=== PATIENT | female | born 1955 | race American Indian/Alaskan Native ===

== ENCOUNTER 2018-05-12 04:58 | Inpatient (IN) ==
[2018-05-08 17:14] LABS: Appearance,Urine HAZY; Bilirubin,Urine NEG (NEG); Color,Urine YELLOW; Glucose,Urine (UA) NEGATIVE (NEG); Leukocyte Esterase,Urine NEG /uL (NEG); Protein,Urine NEG (NEG); Specific Gravity,Urine 1.023 (1.000-1.035); Urine Blood NEG mg/dL (<0.03); Urobilinogen,Urine NEG (NEG)
[2018-05-08 19:21] LABS: Basophils # (Auto) 0 K/mcL (0.0-0.3); Basophils % (Auto) 0.4 % (0.0-2.0); Eosinophils # (Auto) 0.3 K/mcL (0.0-0.7); Eosinophils % (Auto) 2.6 % (0.0-7.0); Granulocytes % (Auto) 59.2 % (38.0-78.0); Lymphocytes % (Auto) 30.1 % (15.5-49.0); Mean Cell Volume 85.2 fL (80.0-100.0); Mean Corpuscular HGB Conc 32.1 g/dL (31.0-36.0); Monocytes # (Auto) 0.8 K/mcL (0.1-0.9); Monocytes % (Auto) 7.7 % (1.0-12.0); Platelet Count 371 K/mcL (140-440); RBC 5.31 M/mcL (4.00-5.20); Red Cell Distribution Width 13.6 % (11.5-14.5)
[2018-05-08 19:46] LABS: Blood Urea Nitrogen 16 mg/dl (8-23)
[2018-05-12] MEDS ORDERED: 0.9 % SODIUM CHLORIDE 9 ML, KETOROLAC 30 MG, ROPIVACAINE HCL/PF 49.5 ML, EPINEPHrine 0.... IJ SCH (06:00)
[2018-05-12] MEDS ORDERED: PREGABALIN 75 MG CAPSULE PO SCH (06:00)
[2018-05-12] MEDS ORDERED: ACETAMINOPHEN 500 MG TABLET PO SCH (06:00)
[2018-05-12] MEDS ORDERED: oxyCODONE 10 MG TAB.ER.12H PO SCH (06:00)
[2018-05-12] MEDS ORDERED: ceFAZolin 1 GM VIAL IV SCH (06:00)
[2018-05-12] MEDS ORDERED: LIDOCAINE HCL/PF 100 MG/5 ML SYRINGE IV ONE (09:15)
[2018-05-12] MEDS ORDERED: ePHEDrine 50 MG/ML AMPUL IV ONE (09:15)
[2018-05-12] MEDS ORDERED: MIDAZOLAM 5 MG/5 ML VIAL IV ONE (09:15)
[2018-05-12] MEDS ORDERED: PROPOFOL 200 MG/20 ML VIAL IV ONE (09:15)
[2018-05-12] MEDS ORDERED: TRANEXAMIC ACID 1,000 MG/10 ML VIAL IV ONE ×2 (09:15→11:12)
[2018-05-12] MEDS ORDERED: ONDANSETRON 4 MG/2 ML VIAL IV ONE (09:15)
[2018-05-12] MEDS ORDERED: ROPIVACAINE HCL/PF 20 ML VIAL IJ ONE (09:15)
[2018-05-12] MEDS ORDERED: DEXAMETHASONE 10 MG/ML VIAL IV ONE (09:15)
[2018-05-12] MEDS ORDERED: GENTAMICIN SULFATE 800 MG/20 ML VIAL IR ONE (09:38)
[2018-05-12] MEDS ORDERED: ONDANSETRON 4 MG/2 ML VIAL IV PRN ×2 (09:57→11:12)
[2018-05-12] MEDS ORDERED: fentaNYL 100 MCG/2 ML VIAL IV PRN (09:57)
[2018-05-12] MEDS ORDERED: IPRATROPIUM/ALBUTEROL 3 ML AMPUL.NEB NEB PRN (09:57)
[2018-05-12] MEDS ORDERED: MEPERIDINE 25 MG/ML SYRINGE IV PRN (09:57)
[2018-05-12] MEDS ORDERED: diphenhydrAMINE 50 MG/ML VIAL IV PRN (09:57)
[2018-05-12] MEDS ORDERED: BENZOCAINE/MENTHOL 1 LOZENGE PO PRN ×2 (09:57→11:12)
[2018-05-12] MEDS ORDERED: LACTATED RINGERS 250 ML IV PRN (09:57)
[2018-05-12] MEDS ORDERED: NALOXONE HCL 0.4 MG/ML VIAL IV PRN (09:57)
[2018-05-12] MEDS ORDERED: KETOROLAC 30 MG/ML VIAL IV PRN (09:57)
[2018-05-12] MEDS ORDERED: PROMETHAZINE 25 MG/ML VIAL IV PRN (09:57)
[2018-05-12] MEDS ORDERED: FLUMAZENIL 0.1 MG/ML ML IV PRN (09:57)
[2018-05-12] MEDS ORDERED: LACTATED RINGERS 1,000 ML IV SCH (10:00)
[2018-05-12] MEDS ORDERED: BISACODYL 10 MG SUPP.RECT PR PRN (11:12)
[2018-05-12] MEDS ORDERED: ACETAMINOPHEN 325 MG TABLET PO PRN (11:12)
[2018-05-12] MEDS ORDERED: TEMAZEPAM 15 MG CAPSULE PO PRN (11:12)
[2018-05-12] MEDS ORDERED: HYDROmorphone 2 MG/ML VIAL IV PRN (11:12)
[2018-05-12] MEDS ORDERED: POLYETHYLENE GLYCOL 3350 17 GM PACKET PO PRN (11:12)
[2018-05-12] MEDS ORDERED: MAGNESIUM HYDROXIDE 30 ML ORAL.SUSP PO PRN (11:12)
[2018-05-12] MEDS ORDERED: FLEETS ADULT ENEMA PR PRN (11:12)
--- NOTE | 2018-05-12 11:12 | Brief Operative Note ---
Date of procedure: 05/12/18 Pre-op diagnosis: right knee djd with hardware Post-op diagnosis: same Procedure: right tka with robot and hardware removal Grafts/Implants: Yes Anesthesia: GETA Complications: none Surgeon: Jeremy Santillan Supervisor [place] [employer]: Chidi Meeks Estimated blood loss (cc): 50 Tourniquet Time (Minutes): 77 Specimens Removed/Pathology: none sent Condition: stable Disposition: PACU
--- NOTE | 2018-05-12 12:29 | XRay Report ---
HISTORY: Postop right knee replacement FINDINGS: There is a well positioned total knee prosthesis. There is a screw seen on the lateral view in the distal femur. The screw is bent. No fracture is present and there is no abnormal soft tissue calcification. IMPRESSION: Well-positioned right knee prosthesis Interpreted and Authenticated by: Oral Palomino 05/12/18
[2018-05-12] MEDS: 0.9 % SODIUM CHLORIDE 10 ML SYRINGE IV SCH ×2 (14:37→22:56)
[2018-05-12] MEDS: KETOROLAC 15 MG/ML VIAL IV SCH ×3 (14:46→23:41)
[2018-05-12] MEDS: 0.45 % SODIUM CHLORIDE 1,000 ML IV SCH ×2 (14:48→21:42)
--- NOTE | 2018-05-12 14:50 | Operative Note ---
DATE OF OPERATION: 05/12/2018 PREOPERATIVE DIAGNOSIS: Degenerative arthritis of her right knee. POSTOPERATIVE DIAGNOSIS: Degenerative arthritis of her right knee. PROCEDURE: Right robotic total knee arthroplasty with hardware removal of the staple as well as a medial screw. SURGEON: Jeremy Santillan MD GRADUATE TEACHER EDUCATION: Chidi Meeks PA-C. ANESTHESIA: General LMA anesthesia. COMPLICATIONS: None. DESCRIPTION OF PROCEDURE: The patient was brought to the operating room and put to sleep with general LMA anesthesia. We confirmed the operative site as the right leg and it was sterilely prepped and draped. Preop antibiotics and tranexamic acid had been given. We made a midline incision through an Ioban isolating it from the skin. Through the Ioban we made about a 4.5 inch incision, identified the patella and then made mid vastus approach. Through this incision, we could see severe wear within the medial compartment of the knee. We then brought in the robot, placed two pins above and below the knee and registered the center of hip rotation, registered the intraarticular pins and 30 points of the femur and the tibia. We then balanced the knee at flexion and extension and then brought the robot in and made our bony cuts, removed the bone and positioned the implant. We trialed the implant after making these bony cuts. This seemed to reveal a perfect alignment. We then prepared the patella measuring a total thickness of 23. This was cut to a thickness of 14 and then we placed a 33 mm patellar button. This seemed to give us perfect alignment and tracking of the patella. We cemented into place the Joan components, both on the tibia and femoral, the tibia because of hardware that was removed. One screw and staple were removed. We had to make a bony hole in the anterior medial cortex to remove the staple because of its angle and position and ingrowth into the titanium staple. Because of this, we then placed a stemmed implant after the hardware removal. A 50 mm stem was added to the tibial baseplate and was cemented into place. The femoral component was cemented into place and we placed a 9 mm poly. This seemed to fit very nicely and robot recorded that we were at 0 degrees extension where we started at +1. Alignment was back to 2 degrees of varus versus 5 degrees. With near perfect alignment, we then resurfaced the patella with a 33 mm patellar button, which was cemented into place. We kept the knee at 45 degrees until all the cement was dry. We then reevaluated the knee and then closed the mid vastus approach after deflating the tourniquet 77 minutes. We closed the capsule with #1 Stratafix x2, closed the skin with 2-0 Vicryl and adhesive closure. The patient tolerated this well. There was no complication. RBH:earl Job ID: [id number] Doc ID: [id number] Jeremy Santillan MD
[2018-05-12] MEDS: ceFAZolin 1 GM VIAL IV SCH ×2 (16:14→23:41)
[2018-05-12] MEDS: HYDROcodone/APAP 10/325MG TABLET PO PRN (17:34)
[2018-05-12] MEDS: FERROUS SULFATE 325 MG TABLET PO SCH (17:35)
[2018-05-12] MEDS ORDERED: SENNOSIDES 1 TABLET PO SCH (21:00)
[2018-05-12] MEDS: ASPIRIN 325 MG ENTERIC COATED TABLET PO SCH (21:42)
[2018-05-12] MEDS: DOCUSATE SODIUM 100 MG CAPSULE PO SCH (21:42)
[2018-05-13] MEDS: KETOROLAC 15 MG/ML VIAL IV SCH ×2 (04:25→13:17)
[2018-05-13] MEDS: 0.9 % SODIUM CHLORIDE 10 ML SYRINGE IV SCH (04:25)
--- NOTE | 2018-05-13 07:30 | Orthopedic Progress Note ---
Subjective Patient information: Note initiated : 05/13/18 at 7:29 am Service Date, if different from initiated Date: [] Patient: Teresita Keita 62 y/o F admitted on 05/12/18 for Right Robotic Total Knee Arthroplasty. Chief Complaint: [Pt is stable this morning on post operative day 1 without any significant concerns or complaints. Patients vital signs have remained stable. Patients dressing is dry and is grossly intact from a neurovascular and motor standpoint. Patients 10 point ROS is otherwise negative. ] Objective Vital signs: Vital Signs Temp Pulse Resp BP Pulse Ox 05/13/18 07:24 98.2 F 79 16 100/58 93 05/13/18 03:57 98.1 F 85 20 110/64 94 05/13/18 00:00 97.8 F 95 H 20 101/60 92 05/12/18 19:31 98.2 F 98 H 20 110/63 93 05/12/18 15:48 97.5 F 16 120/69 95 05/12/18 15:00 93 H 05/12/18 14:42 129/76 94 05/12/18 14:13 110/64 96 05/12/18 13:42 121/71 97 05/12/18 13:27 123/69 96 05/12/18 13:12 128/71 93 05/12/18 12:57 122/71 93 05/12/18 12:42 120/69 96 05/12/18 12:30 93 H 15 95 05/12/18 12:15 97.5 F 95 H 20 129/63 94 05/12/18 12:05 97.5 F 95 H 15 132/72 96 05/12/18 11:55 97 H 18 126/70 100 05/12/18 11:45 97.2 F 84 31 H 119/62 100 05/12/18 11:40 86 31 H 118/65 100 05/12/18 11:35 86 31 H 115/63 100 05/12/18 11:33 97.7 F 86 20 121/62 100 Intake and Output 05/12/18 05/13/18 05/13/18 21:59 05:59 13:59 Intake Total 1000 2125 Output Total 500 800 Balance 1000 1625 -800 Intake: IV 1000 Sodium Chloride 0.45% 1,000 ml 1000 @ 100 mls/hr IV .Q10H JIM Rx#: [id number] Oral 1000 1125 Output: Void Amount 500 800 Other: Meal Dinner Percent of Meal Consumed 100% Feeding Ability Independent # Voids 1 Weight 174 lb Intake & Output: Intake & Output 05/12/18 05/13/18 05/13/18 21:59 05:59 13:59 Intake Total 1000 2125 Output Total 500 800 Balance 1000 1625 -800 Weight 174 lb Intake: IV 1000 Sodium Chloride 0.45% 1,000 ml 1000 @ 100 mls/hr IV .Q10H JIM Rx#: [id number] Oral 1000 1125 Output: Void Amount 500 800 Other: Meal Dinner Percent of Meal Consumed 100% Feeding Ability Independent # Voids 1 Incision: Yes healing Incision clean and dry: Yes Dressing: Yes clean Weight bearing status: full Neurological exam IM: Yes motor sensory intact, Yes neurovascular intact Extremities exam IM: Yes Foot pink and warm, Yes neurovascular intact - Labs CBC & BMP: 05/13/18 04:50 05/08/18 15:13 Labs: Orthopedic Labs 05/08/18 15:13 PT 13.7 INR 1.0 APTT 42 H 05/13/18 05/08/18 04:50 15:13 Hgb 14.6 Hct 40.6 45.3 Assessment and Plan (1) Hx of total knee arthroplasty The patient has been educated regarding dressing care, Physical Therapy recommendations, home exercises, restrictions, and follow up appointments. The patient has had all necessary DME prescribed. The patient has remained relatively stable during their hospital course. Leave Dermabond patch intact until followup Status: Acute
--- NOTE | 2018-05-13 07:32 | Discharge Summary ---
Ortho Discharge - TKA - Patient Instructions Diet: Regular Diet Activity: activity as tolerated, weight bearing as tolerated Total Knee Protocol: For Total Knee: Start ROM DANIEL with stationary bike or rocking chair. Work on gaining full extension of knee. Posterior dislocation precautions provided. Hip abductor strengthening and gait training instructions provided. Apply Cryocuff as instructed. Dressing Care: May shower in 2 days - Problem Maintenance (1) Hx of total knee arthroplasty Status: Acute - Follow Up Plan Follow Up Appointments: Chidi Meeks PA-C [Physician Speech Professor] - 05/27/18 1:10 pm Disposition: Home, Self-Care Prognosis: Good Rehab Potential: Good I certify that the patient requires SNF services: No Overall status at discharge: patient is progressing back to baseline - Orders For Discharge Prescriptions: Aspirin [Ecotrin] 325 mg PO BID #60 tab.ec Docusate Sodium [Colace] 100 mg PO BID #60 capsule HYDROcodone/APAP 10/325MG [[place] 10-325Mg] 1 - 2 tab PO Q4HP PRN #75 tab PRN Reason: Pain Level 3-6
[2018-05-13] MEDS ORDERED: MULTIVIT,THER IRON,CA,FA & MIN 1 TABLET PO SCH (09:00)
[2018-05-13] MEDS ORDERED: CETIRIZINE 10 MG TABLET PO SCH (09:00)
[2018-05-13] MEDS ORDERED: LISINOPRIL 5 MG TABLET PO SCH (09:00)
[2018-05-13] MEDS: FERROUS SULFATE 325 MG TABLET PO SCH (09:07)
[2018-05-13] MEDS: ASPIRIN 325 MG ENTERIC COATED TABLET PO SCH (09:07)
[2018-05-13] MEDS: DOCUSATE SODIUM 100 MG CAPSULE PO SCH (09:07)
[2018-05-13] MEDS: 0.45 % SODIUM CHLORIDE 1,000 ML IV SCH (09:08)
[2018-05-13] MEDS: HYDROcodone/APAP 10/325MG TABLET PO PRN (10:48)
== END 2018-05-13 13:46 | disposition home or self-care (01) | DRG 470 ==
LOC: MEDSUR 04:58
PROVIDERS: ADMIT Orthopaedic Surgery; ATTEND Orthopaedic Surgery